=== PATIENT | male | born 1950 | race African-American/Black ===

== ENCOUNTER 2021-08-07 09:46 | Emergency (ER) | payer OTHER ==
[~2021-08-07] VITALS: Ht 180.3 cm; Wt 97.5 kg
--- NOTE | 2021-08-07 09:48 | NUR ---
BIBA to bed 09.
[2021-08-07 09:51] VITALS: BP 204/124
--- NOTE | 2021-08-07 09:55 | NUR ---
71 yo male BIBA from home c/o lightheadedness since 0700. Pt A&Ox4, ambulatory, states no sleep last night, 2 cups of coffee and recent stressors. States baseline BP normally in 140's. Denies nausea, vomiting, blurry vision, headache. Pt hypertensive BP 204/124 by EMS, repeat 186/108; HR 55; SpO2 92% on room air; RR 20. PMH/Sx/Meds: Denies NKDA
--- NOTE | 2021-08-07 09:58 | NUR ---
Patient transported to CT by ashley
--- NOTE | 2021-08-07 10:07 | NUR ---
PT BACK FROM CT AND CONNECTED TO MONITOR
[2021-08-07] MEDS ORDERED: ENALAPRILAT 2.5 MG/2 ML VIAL IVP ONE (10:25)
--- NOTE | 2021-08-07 10:30 | NUR ---
Dr Pereira at bedside performing MSE
[2021-08-07 10:57] VITALS: BP 157/83
--- NOTE | 2021-08-07 11:00 | NUR ---
Patient discharged with v/s stable. Written and verbal after care instructions given and explained. Patient verbalized understanding. Ambulatory with steady gait. All questions addressed prior to discharge. Advised to follow up with PMD.
== END 2021-08-07 11:00 | disposition home or self-care (01) ==
LOC: MED 09:46
DX: I10 Essential (primary) hypertension (principal); R42 Dizziness and giddiness; Z98.890 Other specified postprocedural states
CPT/HCPCS: 70450; 96374; 99284; J3490